=== PATIENT | female | born 2000 | race Caucasian/White ===

== ENCOUNTER 2023-12-17 10:06 | Day surgery (SDC) | payer BC ==
[2023-12-16 14:40] VITALS: BMI 29.7
[2023-12-17] MEDS ORDERED: CEFAZOLIN 2 GM VIAL ONE (11:00)
[2023-12-17] MEDS ORDERED: Heparin 5,000 UNITS/ML VIAL ONE (11:00)
[2023-12-17] MEDS ORDERED: Sodium Chloride 0.9% 100 ML ONE (11:00)
[2023-12-17] MEDS ORDERED: Lidocaine 1% MPF 2 ML VIAL ONE (11:00)
[2023-12-17] MEDS ORDERED: Lidocaine 2% PF 5 ML VIAL ONE (11:21)
[2023-12-17] MEDS ORDERED: fentaNYL PF 100 MCG/2 ML SYRINGE ONE (11:22)
[2023-12-17] MEDS ORDERED: PROPOFOL 20 ML ONE ×2 (11:22→13:46)
[2023-12-17] MEDS ORDERED: Ondansetron PF 4 MG/2 ML Vial ONE (11:22)
[2023-12-17] MEDS ORDERED: Ketorolac Tromethamine 30 MG (1 mL) VIAL ONE (11:22)
[2023-12-17] MEDS ORDERED: Rocuronium Bromide 10 MG/ML (10ML VIAL) ONE (11:22)
[2023-12-17] MEDS ORDERED: Midazolam HCl 2 mg/2 ml Vial ONE (11:22)
[2023-12-17] MEDS ORDERED: Dexamethasone 20 MG/5 ML VIAL ONE (11:22)
[2023-12-17] MEDS ORDERED: Bacitracin Zinc Ointment 30 gm TUBE ONE (11:37)
[2023-12-17] MEDS ORDERED: EPINEPHrine 1 MG/ML VIAL ONE (11:37)
[2023-12-17] MEDS ORDERED: Bupivacaine 0.25% HCL 30 ML VIAL ONE ×2 (11:37→12:39)
[2023-12-17] MEDS ORDERED: Bupivacaine PF 0.5% 30 ML VIAL ONE (12:42)
[2023-12-17] MEDS ORDERED: SUGAMMADEX SODIUM 200 MG/2 ML VIAL ONE (13:41)
[2023-12-17] MEDS ORDERED: fentaNYL 50 mcg/mL 1 mL Vial ONE ×2 (14:08→14:29)
[2023-12-17] MEDS ORDERED: HYDROcodone/Acetaminophen 5/325 mg Tablet ONE (15:46)
== END 2023-12-17 17:20 | disposition home or self-care (01) ==
LOC: SDC 10:06
PROVIDERS: ATTEND Plastic Surgery
PROC: 0JBD0ZZ Excision of Right Upper Arm Subcutaneous Tissue and Fascia, Open Approach (ICD-10-PCS; principal; 2023-12-17)
DX: D23.5 Other benign neoplasm of skin of trunk (principal)
CPT/HCPCS: 88307; 88331; 88332; 88341; 88342; J0171; J0665; J1100; J1644; J1885; J2001; J2250; J2405; J2704; J3010